=== PATIENT | female | born 2000 | race Caucasian/White ===

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

== ENCOUNTER 2022-07-03 18:01 | Emergency (ER) | payer BC, OTHER ==
--- OUTSIDE RECORDS SUMMARY | 2022-07-03 18:05 | XMS REPORT | Continuity of Care Document ---
:2000 Author Organization [facility] t Address [address] [place] [address] Care Team Providers Name Role Phone Ioana Otilia Attending Clinician Unavailable RAVINDRA PADILLA Attending Clinician Unavailable Problems This patient has no known problems. Allergies, Adverse Reactions, Alerts This patient has no known allergies or adverse reactions. Medications This patient has no known medications. Procedures This patient has no known procedures. Encounters Start End Encounter Admission Attending Care Care Encounter Source Date/Time Date/Time Type Type Clinicians Facility Department ID 2022-05-25 Outpatient ZAHRA Triplett [facility] [id number] Common 10:11:02 Otilia [facility] 2022-04-27 Outpatient ZAHRA Triplett [facility] [id number] Common 11:25:01 Otilia [facility] 2021-12-23 Outpatient ZAHRA Triplett [facility] [id number] Common 09:53:02 Otilia [facility] 2021-11-21 Outpatient ZAHRA Triplett [facility] [id number] Common 08:52:02 Otilia [facility] 2022-05-01 2022-05-01 ambulatory [facility] [id number] Common 00:00:00 00:00:00 [facility] 2022-03-17 2022-03-17 [id number] Common 00:00:00 00:00:00 [facility] 2021-11-01 2021-11-01 Outpatient ZHANNA PADILLASE [id number] [facility] 10:00:00 23:59:00 [facility] l Results This patient has no known results.
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
[2022-07-03] MEDS ORDERED: HYDROCODONE/APAP 5/325 MG TAB ONE (18:51)
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
[2022-07-03 20:37] VITALS: BP 134/86; O2SAT 98
== END 2022-07-03 20:10 | disposition home or self-care (01) ==
LOC: ER 18:01
DX: M54.50 Low back pain, unspecified (principal); M54.12 Radiculopathy, cervical region; V43.52XA Car driver injured in collision with other type car in traffic accident, initial encounter; Y93.89 Activity, other specified; Y92.410 Unspecified street and highway as the place of occurrence of the external cause; F41.9 Anxiety disorder, unspecified; F32.A Depression, unspecified; F31.9 Bipolar disorder, unspecified
CPT/HCPCS: 70450; 71046; 72040; 72125; 99283